=== PATIENT | female | born 1950 | race Caucasian/White ===

== ENCOUNTER 2019-03-29 01:37 | Emergency (ER) | payer MEDICARE, SELFPAY ==
[2019-03-29 02:00] VITALS: BP 139/84; PULSE 67; RESP 18; TEMP 36.4; O2SAT 96; BMI 25.7
--- NOTE | 2019-03-29 02:05 | ED.EPISTAXIS ---
HPI - Epistaxis General Chief complaint: Nasal Problem Stated complaint: 3 nosebleeds since yesterday Time Seen by Provider: 03/29/19 02:01 Source: patient Mode of arrival: ambulatory Limitations: no limitations History of Present Illness HPI Narrative: Patient is a 68-year-old female. Is not on any anticoagulation. Has had a nosebleed from the left nostril several times over the past couple days. She has had nose bleeds in the past was many years ago. Has had have silver nitrate. She has been using Afrin at home. She has an appointment with ENT but this is not for 10-14 days from now. She does report a headache. Related Data Previous Rx's Medication Instructions Recorded amoxicillin-pot clavulanate 875 mg PO BID #14 tab 09/09/17 [Augmentin] Allergies Allergy/AdvReac Type Severity Reaction Status Date / Time No Known Drug Allergies Allergy Verified 03/29/19 02:03 Review of Systems Constitutional Denies fever(s) and Reports headache(s) ENT Ears, Nose, Mouth, and Throat: Denies vertigo, Denies dizziness and Reports headache(s) Comments: Nosebleed Cardiovascular Denies dyspnea Respiratory Denies dyspnea Neurologic Denies vertigo, Denies dizziness and Reports headache(s) Hematologic/Lymphatic Denies easy bleeding and Denies easy bruising [facility] Medical History Healthy adult (Acute) Social History Smoking Status: Never smoker Social History Smoking Status: Never smoker Exam Initial Vital Signs Initial Vital Signs: Vital Signs Temperature 97.6 F 03/29/19 02:00 Pulse Rate 67 03/29/19 02:00 Respiratory Rate 18 03/29/19 02:00 Blood Pressure 139/84 03/29/19 02:00 Pulse Oximetry 96 03/29/19 02:00 Const General: cooperative, healthy appearing, comfortable, well developed, well groomed and No acute distress Orientation: alert, awake and oriented x3 HENMT Head: normal to inspection, normocephalic and atraumatic Nose: external nose normal, nares normal, nasal mucous membranes and turbinates normal, septum normal and No epistaxis Resp Effort & Inspection: normal respiratory effort Cardio Rate: regular rate Skin Lesions: no lesions Rashes: no rashes Neuro General: alert, awake and oriented x3 Cognition: normal cognition Speech: speech normal Extrem General: normal to inspection and capillary refill normal Course Vital Signs - 8 hr 03/29/19 02:00 Temperature 97.6 F Pulse Rate 67 Respiratory Rate 18 Blood Pressure 139/84 Pulse Oximetry 96 MDM - Epistaxis MDM Narrative Medical decision making narrative: Upon my evaluation patient was not bleeding from either nares. There is no signs of anterior bleeding on the left side which is where the patient states the bleeding was coming from. Makes me concerned that this could be posterior bleeding. She is not on any anticoagulation. Is no indication for using silver nitrate her other cautery. No indication for rhino rocket. No indication for emergent ENT referral. She was given return precautions and follow-up instructions. She expressed understanding and agreement with plan. Discharge Plan Departure Patient Disposition: Home Clinical Impression: Epistaxis Instructions: DI for Nosebleed Activity Restrictions/Additional Instructions: Continue all medications as directed. Keep all of your scheduled medical appointments. Return to the emergency department for any new or worsening symptoms Prescriptions: No Action amoxicillin-pot clavulanate [Augmentin] 875 MG/125 MG tablet 875 mg PO BID Qty: 14 RF: 0 Referrals: Jasmina Cardoza ARNP [Primary Care Provider] -
[2019-03-29 03:27] VITALS: BP 116/69; PULSE 56; RESP 16; TEMP 36.5; O2SAT 97
== END 2019-03-29 03:28 | disposition home or self-care (01) ==
PROVIDERS: Emergency Provider Emergency Medicine; Family Provider Nurse Practitioner Family; PCP Nurse Practitioner Family
DX: R04.0 Epistaxis (principal)
CPT/HCPCS: 99282

== ENCOUNTER → 2019-04-30 08:44 | Outpatient (CLI) | payer MEDICARE, SELFPAY ==
--- NOTE | 2019-04-30 | DI.MG.S_ITS ---
BILATERAL DIGITAL SCREENING MAMMOGRAM 3D/2D WITH CAD: 04/30/2019 CLINICAL: Routine screening. Family history of breast cancer. Comparison is made to exams dated: 04/01/2018 mammogram, 01/10/2016 mammogram, and 01/06/2015 mammogram - [facility]. The tissue of both breasts is heterogeneously dense. This may lower the sensitivity of mammography. Current study was also evaluated with a Computer Aided Detection (CAD) system. There are benign calcifications in the right breast. No significant masses, calcifications, or other findings are seen in either breast. There has been no significant interval change. IMPRESSION: There is no mammographic evidence of malignancy. A 1 year screening mammogram is recommended. This exam was interpreted at Station ID: [id number]. NOTE: For mammograms, a report in lay terms will be sent to the patient. Approximately 15% of breast malignancies will not be visualized mammographically. In the management of a palpable breast mass, a negative mammogram must not discourage biopsy of a clinically suspicious lesion. Electronically Signed By: Wilfred stephens/zoran:05/01/2019 06:44:24 letter sent: Normal Exam ACR BI-RADS Category 2: Benign Finding(s) 3342F
== END ==
PROVIDERS: PCP Nurse Practitioner Family; Visit Provider Nurse Practitioner Family
DX: Z12.31 Encounter for screening mammogram for malignant neoplasm of breast (principal); Z80.3 Family history of malignant neoplasm of breast
CPT/HCPCS: 77063; 77067

== ENCOUNTER → 2019-10-02 09:22 | Outpatient (CLI) | payer MEDICARE, SELFPAY ==
--- NOTE | 2019-10-02 | DI.RAD.S_ITS ---
PROCEDURE: XR LUMBAR SPINE 2-3V INDICATIONS: radiculopathy and low back pain TECHNIQUE: 3 views of the lumbar spine were acquired. COMPARISON: None. FINDINGS: Bones: No fracture or focal osseous destruction. Minimal levocurvature. Multilevel degenerative endplate sclerosis and spurring. Diffuse facet arthropathy. Grade 1 anterolisthesis of L4 on L5 and L5 on S1. Trace retrolisthesis of L2 on L3. Moderate L2-L3 disc space narrowing. Mild lumbar disc space narrowing at L1-L2 and L5-S1. Soft tissues: Overlying bowel gas pattern is normal. No suspicious soft tissue calcifications. IMPRESSION: Diffuse lumbar spondylosis and facet arthropathy. Minimal levocurvature. Multilevel spondylolisthesis as above. Dictated by: Apollo Harris M.D. on 10/02/2019 at 11:21 Approved by: Apollo Harris M.D. on 10/02/2019 at 11:24
== END ==
PROVIDERS: PCP Nurse Practitioner Family; Visit Provider Nurse Practitioner Family
DX: M54.5 Low back pain (principal); M47.26 Other spondylosis with radiculopathy, lumbar region; M43.16 Spondylolisthesis, lumbar region; M43.17 Spondylolisthesis, lumbosacral region; M48.061 Spinal stenosis, lumbar region without neurogenic claudication; M48.07 Spinal stenosis, lumbosacral region
CPT/HCPCS: 72100

== ENCOUNTER → 2020-07-04 15:50 | Outpatient (CLI) | payer MEDICARE, SELFPAY ==
--- NOTE | 2020-07-04 | DI.MG.S_ITS ---
BILATERAL DIGITAL SCREENING MAMMOGRAM 3D/2D WITH CAD: 07/04/2020 CLINICAL: Routine screening. Family history of breast cancer. Comparison is made to exams dated: 04/30/2019 mammogram, 04/01/2018 mammogram, and 01/10/2016 mammogram - [facility]. The tissue of both breasts is heterogeneously dense. This may lower the sensitivity of mammography. Current study was also evaluated with a Computer Aided Detection (CAD) system. There are benign calcifications in the right breast. No significant masses, calcifications, or other findings are seen in either breast. There has been no significant interval change. IMPRESSION: BENIGN There is no mammographic evidence of malignancy. A 1 year screening mammogram is recommended. This exam was interpreted at Station ID: [id number]. NOTE: For mammograms, a report in lay terms will be sent to the patient. Approximately 15% of breast malignancies will not be visualized mammographically. In the management of a palpable breast mass, a negative mammogram must not discourage biopsy of a clinically suspicious lesion. Electronically Signed By: Pushpa stallings/zoran:07/04/2020 16:11:01 letter sent: Normal Exam ACR BI-RADS Category 2: Benign Finding(s) 3342F
== END ==
PROVIDERS: PCP Internal Medicine; Referring Provider Internal Medicine; Visit Provider Nurse Practitioner Family
DX: Z12.31 Encounter for screening mammogram for malignant neoplasm of breast (principal); Z80.3 Family history of malignant neoplasm of breast
CPT/HCPCS: 77063; 77067

== ENCOUNTER → 2020-08-31 15:13 | Outpatient (CLI) | payer MEDICARE, SELFPAY ==
--- NOTE | 2020-08-31 | DI.RAD.S_ITS ---
PROCEDURE: XR CHEST 2V INDICATIONS: shortness of breath TECHNIQUE: 2 views of the chest were acquired. COMPARISON: None. FINDINGS: Surgical changes and devices: None. Lungs and pleura: Lungs are clear. No pleural effusions or pneumothorax. Mediastinum: Mediastinal contours are normal. Heart size is normal. Bones and chest wall: No suspicious bony abnormalities. Soft tissues appear unremarkable. IMPRESSION: No acute pulmonary process. Dictated by: Bibi Morales M.D. on 08/31/2020 at 16:27 Approved by: Bibi Morales M.D. on 08/31/2020 at 16:28
== END ==
PROVIDERS: PCP Internal Medicine; Referring Provider Internal Medicine; Visit Provider Internal Medicine
DX: R06.02 Shortness of breath (principal)
CPT/HCPCS: 71046

== ENCOUNTER → 2020-09-06 10:08 | Outpatient (CLI) | payer MEDICARE, SELFPAY ==
[2020-09-07 02:07] LABS: COVID19 Sendout Not Detected (Not Detect)
== END ==
PROVIDERS: PCP Internal Medicine; Visit Provider Nurse Practitioner
DX: Z11.59 Encounter for screening for other viral diseases (principal)
CPT/HCPCS: 87635

== ENCOUNTER → 2020-09-09 06:43 | Outpatient (CLI) | payer MEDICARE, SELFPAY ==
--- NOTE | 2020-09-16 17:15 | PM.PFT.1 ---
Pulmonary Function Test Referral & Results Date Patient Seen: 09/09/20 Requesting provider: Jane Zamarripa Results: The spirometry demonstrates an FVC of 3.08 L which is 105% of predicted. The FEV1 was measured at 2.58 L which is 117% of predicted. The FEV1/FVC ratio was 84 which is 111% of predicted. Following the administration of bronchodilator there was no appreciable change to above normal numbers. Lung volumes show an SVC of 3.05 L which is 107% of predicted. The diffusing capacity was measured at 16.67 which is 68% of predicted. No hemoglobin value was provided, so no correction for potential anemia could be made, if appropriate. The maximum voluntary ventilation was normal Interpretation: This study demonstrates normal spirometry but there is a minimal reduction in diffusing capacity suggesting some element of disease at the capillary alveolar level. Clinical correlation suggested
== END ==
PROVIDERS: PCP Internal Medicine; Referring Provider Internal Medicine; Visit Provider Internal Medicine
DX: R06.09 Other forms of dyspnea (principal); R06.02 Shortness of breath; J98.8 Other specified respiratory disorders
CPT/HCPCS: 94060; 94726; 94729

== ENCOUNTER → 2020-10-06 14:40 | Outpatient (CLI) | payer MEDICARE, SELFPAY ==
--- NOTE | 2020-10-06 | DI.ECHO.S_ITS ---
[place] [facility]---------+ [facility] +---------+ : : [address] : : : : [id number] : : : : Phone: [phone]+ Echocardiogram Report + + :Name: MONALISA WEAVER Study Date: 10/06/2020 Height: 63 in : :[facility] Weight: 152 lb : : Gender: Female BSA: 1.7 m2 : :: 1950 Age: 70 yrs BP: 139/90 mmHg: :Reason For Study: DYSPNEA : :Ordering Physician: JONATAN WILKERSONPerformed By: Lashanda Lopes : :Referring: JONATAN BARRAGAN : + + Interpretation Summary The left ventricle is normal in size and wall thickness. Left ventricular systolic function is normal. The ejection fraction is estimated to be 55-60%. There are no obvious focal wall motion abnormalities noted but poor endocardial definition reduces the sensitivity for the detection of such. Diastolic parameters suggest probable normal left ventricular diastolic function and normal filling pressures. The right ventricle is normal in size and function. Pulmonary artery pressures cannot be estimated because of the lack of a measurable TR jet velocity. Both atria are normal in size. There is no significant valvular heart disease. The aortic root is normal size. Procedure: A two-dimensional transthoracic echocardiogram with color flow and Doppler was performed. There is no prior echocardiogram noted for this patient. Most of the acoustic windows were suboptimal, but the best imaging was obtained from the apical window. The patient was in sinus bradycardia with heart rates between 50-56 bpm during the exam. Left Ventricle: The left ventricle is normal in size and wall thickness. Left ventricular systolic function is normal. The ejection fraction is estimated to be 55-60%. There are no obvious focal wall motion abnormalities noted but poor endocardial definition reduces the sensitivity for the detection of such. Diastolic parameters suggest probable normal left ventricular diastolic function and normal filling pressures. Right Ventricle: The right ventricle is normal in size and function. Atria: Both atria are normal in size. There is no Doppler evidence for an interatrial shunt. Mitral Valve: The mitral valve is normal in structure and function. There is trace mitral regurgitation. Aortic Valve: The aortic valve is trileaflet. The aortic valve opens well. There is no aortic valve stenosis. No aortic regurgitation is present. Tricuspid Valve: The tricuspid valve is normal in structure and function. Pulmonary artery pressures cannot be estimated because of the lack of a measurable TR jet velocity. There is trace tricuspid regurgitation. Pulmonic Valve: The pulmonic valve is not well visualized. There is trace pulmonic regurgitation. There is no significant valvular heart disease. Great Vessels: The aortic root is normal size. The dimensions of the ascending aorta are normal. The inferior vena cava was not visualized. Pericardium/ Pleura There is no pericardial effusion. There is no pleural effusion. MMode/2D Measurements & Calculations LVIDd: 3.7 cm LVOT diam: 2.0 cm LVIDs: 2.8 cm Ao root diam: 3.3 cm FS: 24.7 % asc Aorta Diam: 3.3 cm IVSd: 0.76 cm Ao Arch Diam (Prox Trans): 2.8 cm LVPWd: 0.80 cm LV marti. diameter/BSA (cm/m^2): 2.2 LV sys. diameter/BSA (cm/m^2): 1.6 LA A2 area: 19.4 cm2 RA long axis: 4.7 cm LA A4 area: 15.8 cm2 RA area: 15.0 cm2 LA length (vol): 5.0 cm RA vol: 40.9 ml LA vol: 51.8 ml RA : 23.8 ml/m2 LA vol index: 30.1 ml/m2 RVD1 (basal): 3.6 cm TAPSE: 2.2 cm Doppler Measurements & Calculations Ao V2 max: 117.7 cm/sec LVOT Max Fred: 100.0 cm/sec Ao V2 mean: 81.0 cm/sec LV V1 max P.0 mmHg Ao max P.5 mmHg LV V1 VTI: 23.4 cm Ao mean P.0 mmHg RAYRAY(I,D): 2.7 cm2 Ao V2 VTI: 27.7 cm RAYRAY(V,D): 2.8 cm2 sev ratio: 0.84 RAYRAY indexed to BSA (cm^2/m^2): 1.6 MV E max fred: 65.4 cm/sec PA V2 max: 48.4 cm/sec MV A max fred: 63.2 cm/sec PA V2 mean: 32.7 cm/sec MV E/A: 1.0 PA mean P.49 mmHg Med Peak E' Fred: 7.5 cm/sec PA pr(Accel): 39.6 mmHg E/E' med: 8.7 Lat Peak E' Fred: 9.6 cm/sec E/E' lat: 6.8 E/e' average: 7.7 MV dec time: 0.19 sec SV(LVOT): 75.8 ml Reading Physician:07:26 PM
== END ==
PROVIDERS: PCP Internal Medicine; Referring Provider Internal Medicine; Visit Provider Internal Medicine
DX: R06.00 Dyspnea, unspecified (principal)
CPT/HCPCS: 93306

== ENCOUNTER → 2021-08-21 13:38 | Outpatient (CLI) | payer MEDICARE, SELFPAY ==
--- NOTE | 2021-08-21 | DI.MG.S_ITS ---
BILATERAL DIGITAL SCREENING MAMMOGRAM 3D/2D WITH CAD: 08/21/2021 CLINICAL: Routine screening. Family history of breast cancer. Comparison is made to exams dated: 07/04/2020 mammogram, 04/30/2019 mammogram, and 04/01/2018 mammogram - [facility]. The tissue of both breasts is heterogeneously dense. This may lower the sensitivity of mammography. Current study was also evaluated with a Computer Aided Detection (CAD) system. There are benign calcifications in the right breast. No significant masses, calcifications, or other findings are seen in either breast. There has been no significant interval change. IMPRESSION: BENIGN There is no mammographic evidence of malignancy. A 1 year screening mammogram is recommended. This exam was interpreted at Station ID: [id number]. NOTE: For mammograms, a report in lay terms will be sent to the patient. Approximately 15% of breast malignancies will not be visualized mammographically. In the management of a palpable breast mass, a negative mammogram must not discourage biopsy of a clinically suspicious lesion. Electronically Signed By: Carlos Marin M.D., jr/zoran:08/21/2021 14:27:04 letter sent: Normal Exam ACR BI-RADS Category 2: Benign Finding(s) 3342F
== END ==
PROVIDERS: PCP Internal Medicine; Referring Provider Internal Medicine; Visit Provider Internal Medicine
DX: Z12.31 Encounter for screening mammogram for malignant neoplasm of breast (principal); Z80.3 Family history of malignant neoplasm of breast
CPT/HCPCS: 77063; 77067

== ENCOUNTER 2022-05-04 11:15 | Outpatient (RCR) | payer MEDICARE, SELFPAY ==
--- NOTE | 2022-03-23 12:28 | PT.OIE ---
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 Physical Therapy Initial Evaluation PT-OP-A Visit Information Start: 03/13/22 14:00 Freq: Status: Active Protocol: Document 03/23/22 11:15 AMB (Rec: 03/24/22 12:28 AMB [id number]) Out-Patient Physical Therapy Visit Information Visit Information Visit Type Initial Evaluation Visit Start Time 11:15 Visit Stop Time 12:00 Total Visit Minutes 45 Visit Number 1 PT-OP-B Current Condition Start: 03/13/22 14:00 Freq: Status: Active Protocol: Document 03/23/22 11:27 AMB (Rec: 03/23/22 11:36 AMB [id number]) Current Condition History of Current Condition Onset Date 1 year ago Current Complaints stress incontinence; bladder spasms History of Current Condition Over the past year has noticed small leaks with hiking, jumprope, lifting, cough/ sneeze. Also had two instances of large leaks both while hiking. 2 children both vaginal deliveries with episiotomies. Had been using the estradiol cream but has stopped. Does have a rectocele. Constipation 2-3 type stool. Does do kegels when she thinks about it Does home gym weights about 3x /week, does incorporate crunches into that. Treatment Goals Patient/Caregiver Goals Reduce stress incontinence Prior Functional Status Baseline Function- ADL's Independent Baseline Function- Mobility Independent Personal Factors Other Personal Factors That May Effect Arthritis, GERD Therapy/Recovery PT-OP-C Subjective Start: 03/13/22 14:00 Freq: Status: Active Protocol: Document 03/23/22 11:15 AMB (Rec: 03/24/22 12:28 AMB [id number]) Patient Questionnaires Pelvic Pain and Urgency/Frequency Patient Symptom Scale Pelvic Pain Score 14 PT-OP-I Pelvic Floor Start: 03/13/22 14:00 Freq: Status: Active Protocol: Document 03/23/22 11:15 AMB (Rec: 03/24/22 12:28 AMB [id number]) Pelvic Floor Assessment Urine Pelvic Floor Surgery No Urinary Symptoms Prolapse Leakage Size Small Leakage Cause Cough,Exercise,Lifting,Sneeze Voiding Frequency 9/day Nocturia 2 Urine Pad Type Panty Liner Bowel [place] Stool Chart Type 1-7 2 [place] Stool Chart Comments 2-3 Prolapse Rectocele Grade 3 Perineal Descent Resting Absent Bearing Absent Contraction Ability Voluntary Contraction Moderate Voluntary Relaxation Moderate Manual Muscle Testing Left 3 Manual Muscle Testing Right 3 Manual Muscle Testing Anterior 3 Manual Muscle Testing Posterior 3 Muscle Endurance (Seconds) 5 Number of Quick Contractions In 10 5 Seconds PT-OP-T Assessment and Plan Start: 03/13/22 14:00 Freq: Status: Active Protocol: Document 03/23/22 11:15 AMB (Rec: 03/24/22 12:28 AMB [id number]) Physical Therapy Assessment Rehab Potential Rehabilitation Potential Good Evaluation Complexity Number of Personal Factors/Comorbidities 1-2 Number of Body Systems Impaired 1-2 Clinical Presentation at Evaluation Stable Impairments Impairments Activity Tolerance,Strength Goals Two Impairment Pelvic floor strength Short Term Goal (STG) Laya will contract her pelvic floor while moving from sit to stand. STG Duration 4 weeks Fci Goal (LTG) Laya will contract her pelvic floor for 10 seconds while in standing to show improved strength. LTG Duration 8 weeks One Impairment Continence Short Term Goal (STG) Laya will sneeze without leaking urine. STG Duration 4 weeks Fci Goal (LTG) Laya will hike without leaking urine. LTG Duration 8 weeks Assessment Summary Assessment Laya attends physical therapy with progressively worsening stress incontinence. Her pelvic floor strength was actually fairly appropriate given her post menopausal state, but could still improve given her active lifestyle. She will benefit from physical therapy to improve her pelvic floor strength to reduce the incidence of her stress urinary incontinence and also discuss behavior modification to try to reduce the progression of her rectocele. Physical Therapy Plan Frequency and Duration Frequency of Treatment 1x/Week Duration of Treatment 8 weeks Plan of Care Start Date 03/23/22 Plan of Care End Date 05/18/22 Therapeutic Interventions Therapeutic Interventions Home Exercise Program,Manual Therapy,Neuromuscular Re- education,Self-Care/Home Management,Therapeutic Activities,Therapeutic Exercises Modalities Biofeedback,Cold Pack/Ice Massage,Electric Stimulation, Hot Packs Next Visit Focus/Plan Next Note Type Treatment Note Next Visit Plan Biofeedback, consider seated to standing progression
--- NOTE | 2022-03-24 12:30 | PT.OPPOC ---
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 Family Provider Primary Care Provider Referring Provider Specialty: Family Practice Address: [address] [place] [address], [address] Email: [email or web address] Plan Of Care PT-OP-T Assessment and Plan Start: 03/13/22 14:00 Freq: Status: Active Protocol: Document 03/23/22 11:15 AMB (Rec: 03/24/22 12:28 AMB [id number]) Physical Therapy Assessment Rehab Potential Rehabilitation Potential Good Evaluation Complexity Number of Personal Factors/Comorbidities 1-2 Number of Body Systems Impaired 1-2 Clinical Presentation at Evaluation Stable Impairments Impairments Activity Tolerance,Strength Goals Two Impairment Pelvic floor strength Short Term Goal (STG) Laya will contract her pelvic floor while moving from sit to stand. STG Duration 4 weeks Crime Analyst Goal (LTG) Laya will contract her pelvic floor for 10 seconds while in standing to show improved strength. LTG Duration 8 weeks One Impairment Continence Short Term Goal (STG) Laya will sneeze without leaking urine. STG Duration 4 weeks Crime Analyst Goal (LTG) Laya will hike without leaking urine. LTG Duration 8 weeks Assessment Summary Assessment Laya attends physical therapy with progressively worsening stress incontinence. Her pelvic floor strength was actually fairly appropriate given her post menopausal state, but could still improve given her active lifestyle. She will benefit from physical therapy to improve her pelvic floor strength to reduce the incidence of her stress urinary incontinence and also discuss behavior modification to try to reduce the progression of her rectocele. Physical Therapy Plan Frequency and Duration Frequency of Treatment 1x/Week Duration of Treatment 8 weeks Plan of Care Start Date 03/23/22 Plan of Care End Date 05/18/22 Therapeutic Interventions Therapeutic Interventions Home Exercise Program,Manual Therapy,Neuromuscular Re- education,Self-Care/Home Management,Therapeutic Activities,Therapeutic Exercises Modalities Biofeedback,Cold Pack/Ice Massage,Electric Stimulation, Hot Packs Next Visit Focus/Plan Next Note Type Treatment Note Next Visit Plan Biofeedback, consider seated to standing progression Plan of Care Dates Plan of Care Start Date 03/23/22 Plan of Care End Date 05/18/22 Electronically Signed by: Charlotte Álvarez, PT 03/24/22 [id number] If you are in agreement with this Plan of Care, please return a signed and dated copy. I have reviewed this Plan of Care and certify that the skilled therapy services above are required to meet the patient?s needs. Physician Signature Date Printed Name and Credentials Clinical Instructor Signature Printed Name and Credentials
--- NOTE | 2022-03-30 15:49 | PT.OTN ---
Current Diagnoses Unspecified urinary incontinence (03/30/22) Physical Therapy Treatment Note PT-OP-A Visit Information Start: 03/13/22 14:00 Freq: Status: Active Protocol: Document 03/30/22 11:22 AMB (Rec: 03/30/22 13:01 AMB [id number]) Out-Patient Physical Therapy Visit Information Visit Information Visit Type Treatment Note Visit Start Time 11:15 Visit Stop Time 12:00 Total Visit Minutes 45 Visit Number 2 PT-OP-B Current Condition Start: 03/13/22 14:00 Freq: Status: Active Protocol: Document 03/23/22 11:27 AMB (Rec: 03/23/22 11:36 AMB [id number]) Current Condition History of Current Condition Onset Date 1 year ago Current Complaints stress incontinence; bladder spasms History of Current Condition Over the past year has noticed small leaks with hiking, jumprope, lifting, cough/ sneeze. Also had two instances of large leaks both while hiking. 2 children both vaginal deliveries with episiotomies. Had been using the estradiol cream but has stopped. Does have a rectocele. Constipation 2-3 type stool. Does do kegels when she thinks about it Does home gym weights about 3x /week, does incorporate crunches into that. Treatment Goals Patient/Caregiver Goals Reduce stress incontinence Prior Functional Status Baseline Function- ADL's Independent Baseline Function- Mobility Independent Personal Factors Other Personal Factors That May Effect Arthritis, GERD Therapy/Recovery PT-OP-C Subjective Start: 03/13/22 14:00 Freq: Status: Active Protocol: Document 03/30/22 11:22 AMB (Rec: 03/30/22 13:01 AMB [id number]) OP-PT Subjective Patient Comments Patient Comments laya is doing well, doing her exercises, feeling a bit stronger, but hasn't gone on a hike to try it out. PT-OP-I Pelvic Floor Start: 03/13/22 14:00 Freq: Status: Active Protocol: Document 03/23/22 11:15 AMB (Rec: 03/24/22 12:28 AMB [id number]) Pelvic Floor Assessment Urine Pelvic Floor Surgery No Urinary Symptoms Prolapse Leakage Size Small Leakage Cause Cough,Exercise,Lifting,Sneeze Voiding Frequency 9/day Nocturia 2 Urine Pad Type Panty Liner Bowel [place] Stool Chart Type 1-7 2 [place] Stool Chart Comments 2-3 Prolapse Rectocele Grade 3 Perineal Descent Resting Absent Bearing Absent Contraction Ability Voluntary Contraction Moderate Voluntary Relaxation Moderate Manual Muscle Testing Left 3 Manual Muscle Testing Right 3 Manual Muscle Testing Anterior 3 Manual Muscle Testing Posterior 3 Muscle Endurance (Seconds) 5 Number of Quick Contractions In 10 5 Seconds PT-OP-Q Treatments Start: 03/13/22 14:00 Freq: Status: Active Protocol: Document 03/30/22 11:15 AMB (Rec: 03/30/22 15:49 AMB [id number]) Therapeutic Exercises Sitting Exercises [place] ball Sitting Exercise Name with long hold Reps/Minutes 10 Comments alternating LE march and UE flexion sit to stand Reps/Minutes 2x10 roll in roll out Sitting Exercise Name 3 second hold Reps/Minutes 3x10 Comments cued breath Standing Exercises NBOS>WBOS Standing Exercise Name quick flicks and long holds Reps/Minutes 10 squat Standing Exercise Name 10# Reps/Minutes 4 Comments careful with low back PT-OP-T Assessment and Plan Start: 03/13/22 14:00 Freq: Status: Active Protocol: Document 03/30/22 11:22 AMB (Rec: 03/30/22 13:01 AMB [id number]) Physical Therapy Assessment Goals Two Impairment Pelvic floor strength Short Term Goal (STG) Laya will contract her pelvic floor while moving from sit to stand. STG Duration 4 weeks Stockbroker Goal (LTG) Laya will contract her pelvic floor for 10 seconds while in standing to show improved strength. LTG Duration 8 weeks One Impairment Continence Short Term Goal (STG) Laya will sneeze without leaking urine. STG Duration 4 weeks Mcfp Goal (LTG) Laya will hike without leaking urine. LTG Duration 8 weeks Assessment Summary Assessment Laya did well with standing exercises. Good understanding of breathing. Will need to work more on holding with dynamic movement and with a wider base of support. Physical Therapy Plan Next Visit Focus/Plan Next Note Type Treatment Note Next Visit Plan Progress standing exercises
--- NOTE | 2022-05-04 13:00 | PT.OTN ---
Current Diagnoses Unspecified urinary incontinence (05/04/22) Physical Therapy Treatment Note PT-OP-A Visit Information Start: 03/13/22 14:00 Freq: Status: Active Protocol: Document 05/04/22 11:14 AMB (Rec: 05/04/22 11:45 AMB [id number]) Out-Patient Physical Therapy Visit Information Visit Information Visit Type Treatment Note Visit Start Time 11:15 Visit Stop Time 12:00 Total Visit Minutes 45 Visit Number 3 PT-OP-B Current Condition Start: 03/13/22 14:00 Freq: Status: Active Protocol: Document 03/23/22 11:27 AMB (Rec: 03/23/22 11:36 AMB [id number]) Current Condition History of Current Condition Onset Date 1 year ago Current Complaints stress incontinence; bladder spasms History of Current Condition Over the past year has noticed small leaks with hiking, jumprope, lifting, cough/ sneeze. Also had two instances of large leaks both while hiking. 2 children both vaginal deliveries with episiotomies. Had been using the estradiol cream but has stopped. Does have a rectocele. Constipation 2-3 type stool. Does do kegels when she thinks about it Does home gym weights about 3x /week, does incorporate crunches into that. Treatment Goals Patient/Caregiver Goals Reduce stress incontinence Prior Functional Status Baseline Function- ADL's Independent Baseline Function- Mobility Independent Personal Factors Other Personal Factors That May Effect Arthritis, GERD Therapy/Recovery PT-OP-C Subjective Start: 03/13/22 14:00 Freq: Status: Active Protocol: Document 05/04/22 11:14 AMB (Rec: 05/04/22 11:45 AMB [id number]) OP-PT Subjective Patient Comments Patient Comments Laya went on a hike and went rowing without any bathroom breaks. PT-OP-I Pelvic Floor Start: 03/13/22 14:00 Freq: Status: Active Protocol: Document 03/23/22 11:15 AMB (Rec: 03/24/22 12:28 AMB [id number]) Pelvic Floor Assessment Urine Pelvic Floor Surgery No Urinary Symptoms Prolapse Leakage Size Small Leakage Cause Cough,Exercise,Lifting,Sneeze Voiding Frequency 9/day Nocturia 2 Urine Pad Type Panty Liner Bowel [place] Stool Chart Type 1-7 2 [place] Stool Chart Comments 2-3 Prolapse Rectocele Grade 3 Perineal Descent Resting Absent Bearing Absent Contraction Ability Voluntary Contraction Moderate Voluntary Relaxation Moderate Manual Muscle Testing Left 3 Manual Muscle Testing Right 3 Manual Muscle Testing Anterior 3 Manual Muscle Testing Posterior 3 Muscle Endurance (Seconds) 5 Number of Quick Contractions In 10 5 Seconds PT-OP-Q Treatments Start: 03/13/22 14:00 Freq: Status: Active Protocol: Document 05/04/22 11:15 AMB (Rec: 05/04/22 12:54 AMB [id number]) Therapeutic Exercises Sitting Exercises sit to stand Reps/Minutes 2x10 Standing Exercises NBOS>WBOS Standing Exercise Name quick flicks and long holds Reps/Minutes 10 PT-OP-T Assessment and Plan Start: 03/13/22 14:00 Freq: Status: Active Protocol: Document 05/04/22 11:14 AMB (Rec: 05/04/22 11:45 AMB [id number]) Physical Therapy Assessment Goals Two Impairment Pelvic floor strength Short Term Goal (STG) Laya will contract her pelvic floor while moving from sit to stand. STG Duration MET Usp Goal (LTG) Laya will contract her pelvic floor for 10 seconds while in standing to show improved strength. LTG Duration MET One Impairment Continence Short Term Goal (STG) Laya will sneeze without leaking urine. STG Duration MET Marine Structural Welder Goal (LTG) Laya will hike without leaking urine. LTG Duration MET Assessment Summary Assessment Laya has done well with her exercises and was able to hike without leaking. She also reports she can sneeze without leaking, pickleball is still challenging, but overall she is continuing to see improvements. She is concerned regarding the two episodes of bladder spasms she has experienced, but since they have not occurred during her time in PT and are fairly distant at this point, would recommend she follow up with her PCP regarding any continued spasms. Physical Therapy Plan Discharge Physical Therapy Discharge Reasons Goals Met
== END 2022-05-07 10:48 ==
LOC: PHYS 11:15
PROVIDERS: Family Provider Internal Medicine; PCP Internal Medicine; Referring Provider Internal Medicine; Visit Provider Internal Medicine
DX: R32 Unspecified urinary incontinence (principal)
CPT/HCPCS: 97110; 97161

== ENCOUNTER → 2022-09-17 12:54 | Outpatient (CLI) | payer MEDICARE, SELFPAY ==
--- NOTE | 2022-09-17 12:56 | DI.MG.S_ITS ---
BILATERAL DIGITAL SCREENING MAMMOGRAM 3D/2D WITH CAD: 09/17/2022 CLINICAL: Routine screening. Family history of breast cancer. Comparison is made to exams dated: 08/21/2021 mammogram, 07/04/2020 mammogram, and 04/30/2019 mammogram - [facility]. Both breasts are heterogeneously dense, which may obscure small masses (category c / 51-75% glandular tissue). Current study was also evaluated with a Computer Aided Detection (CAD) system. There are benign calcifications in the right breast. No significant masses, calcifications, or other findings are seen in either breast. There has been no significant interval change. IMPRESSION: BENIGN There is no mammographic evidence of malignancy. A 1 year screening mammogram is recommended. This exam was interpreted at Station ID: [id number]. NOTE: For mammograms, a report in lay terms will be sent to the patient. Approximately 15% of breast malignancies will not be visualized mammographically. In the management of a palpable breast mass, a negative mammogram must not discourage biopsy of a clinically suspicious lesion. Electronically Signed By: Carlos Marin M.D., jr/zoran:09/17/2022 15:49:06 letter sent: Normal Exam ACR BI-RADS Category 2: Benign Finding(s) [id number]
== END ==
PROVIDERS: Family Provider Internal Medicine; PCP Internal Medicine; Referring Provider Internal Medicine; Visit Provider Internal Medicine
DX: Z12.31 Encounter for screening mammogram for malignant neoplasm of breast (principal); Z80.3 Family history of malignant neoplasm of breast
CPT/HCPCS: 77063; 77067

== ENCOUNTER → 2022-11-20 14:27 | Outpatient (CLI) | payer MEDICARE, SELFPAY ==
--- NOTE | 2022-11-20 14:30 | DI.RAD.S_ITS ---
PROCEDURE: XR HIP W PEL IF DONE LT 2V INDICATIONS: Left hip pain TECHNIQUE: AP pelvis with lateral view(s) of the left hip(s). COMPARISON: CR, XR LUMBAR SPINE 2-3V, 10/02/2019, 9:30. FINDINGS: Bones: No fractures or dislocations. Pelvic ring appears intact. No suspicious bony lesions. Mild bilateral axial hip joint space narrowing. Degenerative disc and facet disease involves the inferior lumbar spine. Soft tissues: The visualized bowel gas pattern is normal. No suspicious soft tissue calcifications. IMPRESSION: Mild symmetric hip joint degeneration. Dictated by: Manuel Schmitt [facility] Interpreted: Bibi Morales MD on 11/20/2022 at 14:56 Transcribed by: KAYLA on 11/20/2022 at 14:57 Approved by: Bibi Morales M.D. on 11/20/2022 at 21:01
== END ==
PROVIDERS: Family Provider Internal Medicine; PCP Internal Medicine; Referring Provider Internal Medicine; Visit Provider Internal Medicine
DX: M16.0 Bilateral primary osteoarthritis of hip (principal); M25.552 Pain in left hip
CPT/HCPCS: 73502

== ENCOUNTER → 2023-09-19 11:42 | Outpatient (CLI) | payer MEDICARE, SELFPAY ==
--- NOTE | 2023-09-19 11:44 | DI.MG.S_ITS ---
BILATERAL DIGITAL SCREENING MAMMOGRAM 3D/2D WITH CAD: 09/19/2023 CLINICAL: Routine screening. Family history of breast cancer. Comparison is made to exams dated: 09/17/2022 mammogram, 08/21/2021 mammogram, and 07/04/2020 mammogram - [facility]. Both breasts are heterogeneously dense, which may obscure small masses (category c / 51-75% glandular tissue). Current study was also evaluated with a Computer Aided Detection (CAD) system. There are benign calcifications in the right breast. No significant masses, calcifications, or other findings are seen in either breast. There has been no significant interval change. IMPRESSION: BENIGN There is no mammographic evidence of malignancy. A 1 year screening mammogram is recommended. Based on the Tyrer Cuzick model (a risk assessment model) the patient's lifetime risk is 17.6% and her 10 year risk is 17.6%. According to the ACR, ACS, and NCCN guidelines, an annual breast MRI exam along with mammogram is recommended if the patient's lifetime risk is 20% or greater. This exam was interpreted at Station ID: [id number]. NOTE: For mammograms, a report in lay terms will be sent to the patient. Approximately 15% of breast malignancies will not be visualized mammographically. In the management of a palpable breast mass, a negative mammogram must not discourage biopsy of a clinically suspicious lesion. Electronically Signed By: Ney martin/zoran:09/19/2023 14:09:19 letter sent: Normal Exam ACR BI-RADS Category 2: Benign Finding(s) [id number]
== END ==
PROVIDERS: Family Provider Internal Medicine; PCP Internal Medicine; Referring Provider Internal Medicine; Visit Provider Internal Medicine
DX: Z12.31 Encounter for screening mammogram for malignant neoplasm of breast (principal); Z80.3 Family history of malignant neoplasm of breast
CPT/HCPCS: 77063; 77067

== ENCOUNTER → 2024-10-05 15:06 | Outpatient (CLI) | payer MEDICARE, SELFPAY ==
--- NOTE | 2024-10-05 15:07 | DI.MG.S_ITS ---
BILATERAL DIGITAL SCREENING MAMMOGRAM 3D/2D WITH CAD: 10/05/2024 CLINICAL: Routine screening. Family history of breast cancer. Comparison is made to exams dated: 09/19/2023 mammogram, 09/17/2022 mammogram, 08/21/2021 mammogram, 07/04/2020 mammogram, and 04/30/2019 mammogram - [facility]. The breasts are heterogeneously dense, which may obscure small masses (category c / 51-75% glandular tissue). Current study was also evaluated with a Computer Aided Detection (CAD) system. There are benign calcifications in the right breast. No significant masses, calcifications, or other findings are seen in either breast. There has been no significant interval change. IMPRESSION: BENIGN There is no mammographic evidence of malignancy. A 1 year screening mammogram is recommended. Based on the Tyrer Cuzick model (a risk assessment model) the patient's lifetime risk is 18.3% and her 10 year risk is 0.0%. According to the ACR, ACS, and NCCN guidelines, an annual breast MRI exam along with mammogram is recommended if the patient's lifetime risk is 20% or greater. This exam was interpreted at Station ID: [id number]. NOTE: For mammograms, a report in lay terms will be sent to the patient. Approximately 15% of breast malignancies will not be visualized mammographically. In the management of a palpable breast mass, a negative mammogram must not discourage biopsy of a clinically suspicious lesion. Electronically Signed By: Sarah Heath M.D., Ph.D. sheela/zoran:10/06/2024 10:06:04 letter sent: Normal Exam ACR BI-RADS Category 2: Benign
== END ==
PROVIDERS: Family Provider Internal Medicine; PCP Internal Medicine; Referring Provider Internal Medicine; Visit Provider Internal Medicine
DX: Z12.31 Encounter for screening mammogram for malignant neoplasm of breast (principal); Z80.3 Family history of malignant neoplasm of breast; R92.333 Mammographic heterogeneous density, bilateral breasts
CPT/HCPCS: 77063; 77067

== ENCOUNTER → 2025-10-29 14:50 | Outpatient (CLI) | payer MEDICARE, SELFPAY ==
--- NOTE | 2025-10-29 15:02 | DI.RAD.S_ITS ---
PROCEDURE: XR DEXA AXIAL SKELETON INDICATIONS: Postmenopausal screening COMPARISON: None. FINDINGS: Lumbar Spine: Bone mineral density 1.120 g/cm2, T score 0.7, normal density. Left Femoral Neck: Bone mineral density 0.735 g/cm2, T score -1.0. Left Hip: Bone mineral density 0.861 g/cm2, T score -0.7, normal density. Dissimilar scan techniques limits evaluation for interval change. Right Femoral Neck: Not evaluated Right Hip: Not evaluated Left Forearm: Not evaluated Fracture Risk Calculation (when applicable): Not evaluated due to normal bone mineral density. (T score greater or equal to -1.0 to: NORMAL) (T score from -1.1 to -2.4: OSTEOPENIA) (T score less than or equal to -2.5: OSTEOPOROSIS) IMPRESSION: Normal density Follow-up guidelines as follows: Osteoporosis: Consider a repeat DEXA and Vertebral Fracture Assessment (VFA) exam in 2 years or sooner if medically necessary, to reassess this patient's status. Osteopenia: Consider a repeat DEXA in 2-3 years to reassess this patient's status, or if there is a new clinical indication. Normal: Consider a repeat DEXA in 5 years or sooner, or if there is a new clinical indication. All treatment decisions require clinical judgment and consideration of individual patient factors, including patient preferences, comorbidities, previous drug use, risk factors not captured in the FRAX model (e.g., frailty, falls, vitamin D deficiency, increased bone turnover, interval significant decline in bone density ) and possible under- or over-estimation of fracture risk by FRAX. In addition, the NOF Guide recommends that FDA-approved medical therapies be considered in postmenopausal women and men age >= 50 years with a: * Hip or vertebral (clinical or morphometric) fracture * T-score of <=-2.5 at the spine or hip * Ten-year fracture probability by FRAX of >= 3% for hip fracture or >=20% for major osteoporotic fracture. Dictated by: Loraine Earl M.D. on 10/31/2025 at 20:10 Approved by: Loraine Earl M.D. on 10/31/2025 at 20:11
== END ==
PROVIDERS: Family Provider Internal Medicine; PCP Family Medicine; Referring Provider Family Medicine; Visit Provider Family Medicine
DX: Z78.0 Asymptomatic menopausal state (principal)
CPT/HCPCS: 77080

== ENCOUNTER → 2025-10-29 15:33 | Outpatient (CLI) | payer MEDICARE, SELFPAY ==
--- NOTE | 2025-10-29 15:34 | DI.MG.S_ITS ---
MM screening mammo BI: 10/29/2025. BI-RADS: 1 CLINICAL: 75-year old female for bilateral screening mammogram. Tyrer-Cuzick lifetime risk of 12.4%. Current reported family history of breast cancer: sister, second sister and third sister. The patient reports testing negative for BRCA gene mutation. PRIOR EXAMS 10/05/2024, 09/19/2023, 09/17/2022, 08/21/2021. MAMMOGRAPHY TECHNIQUE: 2D and 3D (tomosynthesis) digital mammographic views obtained, with additional images as needed for full coverage. Current study was also evaluated with a Computer Aided Detection (CAD) system. DENSITY C. The breasts are heterogeneously dense, which may obscure small masses. MAMMOGRAPHY FINDINGS Bilateral: No suspicious mass, asymmetry, microcalcification, or other abnormality seen. IMPRESSION: * No evidence of malignancy. RECOMMENDATIONS Bilateral * Annual screening mammography. OVERALL ASSESSMENT CATEGORY BI-RADS-1: Negative. The [employer] recommends annual screening mammography beginning at age 40 for women with average risk of breast cancer. ELECTRONICALLY SIGNED: Ratna Duffy M.D. on 10/31/2025 at 11:05:35 PM PT Interpreting Station ID: [id number]
== END ==
PROVIDERS: Family Provider Internal Medicine; PCP Family Medicine; Referring Provider Family Medicine; Visit Provider Family Medicine
DX: Z12.31 Encounter for screening mammogram for malignant neoplasm of breast (principal); R92.333 Mammographic heterogeneous density, bilateral breasts; Z80.3 Family history of malignant neoplasm of breast
CPT/HCPCS: 77063; 77067